=== PATIENT | female | born 2000 | race Caucasian/White ===

== ENCOUNTER 2025-06-17 05:52 | Inpatient (IN) | payer OTHER ==
[~2025-06-17] VITALS: Ht 152.4 cm; Wt 79.4 kg
[2025-06-17 05:04] VITALS: BP 114/87
[2025-06-17] MEDS ORDERED: PROMETHAZINE HCL 25 MG/ML AMPUL IV PRN (06:00)
[2025-06-17] MEDS ORDERED: RINGERS SOLUTION,LACTATED 1,000 ML IV SCH (06:00)
[2025-06-17] MEDS ORDERED: MORPHINE SULFATE 4 MG/ML CARTRIDGE IV PRN (06:00)
[2025-06-17] MEDS ORDERED: PRENATAL TABLE1 EAC1 (06:37)
[2025-06-17] MEDS ORDERED: SYNTHROID88 MCG PO (06:38)
[2025-06-17 07:08] LABS: BASO % 0.2 % (0.1-1.2); EOS # 0.19 (0.04-0.54); EOS % 0.9 % (0.7-7.0); LYMPH # 2.21 (1.18-3.74); LYMPH % 10.9 % (19.3-53.1); MEAN PLATELET VOLUME 13.00 fl (9.4-12.4); MONO # 1.36 (0.24-0.82); MONO % 6.7 % (4.7-12.5); NEUT # 16.40 (1.56-6.13); NEUT % 80.7 % (34.0-71.1); RED CELL DISTRIBUTION WIDTH 16.8 % (11.6-14.4)
[2025-06-17 07:10] VITALS: BP 125/71
[2025-06-17 07:11] LABS: URINE APPEARANCE Clear; URINE BILIRRUBIN Negative (NEGATIVE); URINE BLOOD Negative; URINE COLOR Yellow; URINE GLUCOSE Negative (NEGATIVE); URINE KETONE Trace (NEGATIVE); URINE LEUKOCYTE Trace; URINE NITRATE Negative; URINE PROTEIN 30 (NEGATIVE); URINE UROBILINOGEN 1.0 E.U./dl
[2025-06-17 07:16] LABS: URINE BACTERIA 911.9 uL (0.0-1933); URINE EPITHELIAL CELLS 32.7 uL (0.0-38.8); URINE RBC 3.6 uL (0.0-20.8); URINE WBC 19.5 uL (0.0-23.2)
[2025-06-17 07:16] LABS: INR < 0.93
[2025-06-17 07:34] LABS: URINE CAST 1.02 uL (0.0-1.40)
[2025-06-17 07:38] LABS: ALT/SGPT 12.0 U/L (12-78); AST/SGOT 14.0 U/L (15-37); BILIRUBIN TOTAL 0.44 mg/dL (0.3-1.2); BUN CREA RATIO 15.0 (7.0-25.0); CREATININE SERUM 0.68 mg/dL (0.55-1.02); GFR 105.42; GLOBULINA 4.2 G/DL (2.4-3.5); GLUCOSE FASTING 83.0 mg/dL (65-100); OSMOLALITY SERUM 279.0 MOSM/KG (275-295)
[2025-06-17] MEDS ORDERED: MISOPROSTOL 25 MCG/4 ML GEL.W.APPL VAG ONE ×3 (11:00→20:15)
[2025-06-17 11:26] VITALS: BP 121/75
[2025-06-17 15:15] VITALS: BP 112/59
[2025-06-17 19:25] VITALS: BP 122/66
[2025-06-17 23:07] VITALS: BP 134/84
[2025-06-18] MEDS ORDERED: MISOPROSTOL 25 MCG/4 ML GEL.W.APPL VAG ONE (00:15)
[2025-06-18 03:30] VITALS: BP 137/83
[2025-06-18 07:29] VITALS: BP 123/60
[2025-06-18 11:00] VITALS: BP 126/75
[2025-06-18] MEDS ORDERED: OXYTOCIN 500 ML IV SCH (12:15)
[2025-06-18 15:11] VITALS: BP 118/71
[2025-06-18] MEDS ORDERED: MORPHINE SULFATE 4 MG/ML VIAL IV PRN (15:15)
[2025-06-18] MEDS ORDERED: CEFAZOLIN SODIUM 1,000 MG VIAL IV ONE (17:15)
[2025-06-18] MEDS ORDERED: MORPHINE SULFATE 4 MG/ML CARTRIDGE IV PRN (19:00)
[2025-06-18] MEDS ORDERED: NALOXONE HCL 0.4 MG/ML AMPUL IV PRN (19:45)
[2025-06-18] MEDS ORDERED: OXYTOCIN 1,000 ML IV SCH (19:45)
[2025-06-18] MEDS ORDERED: MORPHINE SULFATE 4 MG/ML VIAL IV ONE (19:55)
[2025-06-18 21:34] VITALS: BP 130/73; O2SAT 99
[2025-06-19] VITALS: BP 145/84
[2025-06-19] MEDS ORDERED: LEVOTHYROXINE SODIUM 88 MCG TABLET PO SCH (06:00)
[2025-06-19 07:35] LABS: BASO % 0.2 % (0.1-1.2); EOS # 0.01 (0.04-0.54); EOS % 0.0 % (0.7-7.0); LYMPH # 1.77 (1.18-3.74); LYMPH % 7.8 % (19.3-53.1); MEAN PLATELET VOLUME 12.00 fl (9.4-12.4); MONO # 1.52 (0.24-0.82); MONO % 6.7 % (4.7-12.5); NEUT # 19.30 (1.56-6.13); NEUT % 84.7 % (34.0-71.1); RED CELL DISTRIBUTION WIDTH 16.7 % (11.6-14.4)
[2025-06-19 08:17] VITALS: BP 123/82
[2025-06-19] MEDS ORDERED: SIMETHICONE 125 MG CAPSULE PO SCH (09:00)
[2025-06-19] MEDS ORDERED: DOCUSATE SODIUM 100MG CAP PO SCH (09:00)
[2025-06-19] MEDS ORDERED: PNV,CALCIUM 72/IRON/FOLIC ACID 1 TAB TABLET PO SCH (09:00)
[2025-06-19] MEDS ORDERED: OxyCODONE HCL 5 MG TABLET (ROXICODONE) PO PRN (12:00)
[2025-06-19] MEDS ORDERED: ACETAMINOPHEN 325 MG TABLET PO PRN (12:00)
[2025-06-19] MEDS ORDERED: MEASLES,MUMPS,RUBELLA VACC/PF 1 VIAL VIAL SUBCUTANEO ONE (12:00)
[2025-06-19 13:34] VITALS: BP 94/59
[2025-06-19 18:09] VITALS: BP 99/62
[2025-06-20] VITALS: BP 92/60
[2025-06-20 08:00] VITALS: BP 106/69
== END 2025-06-20 17:09 | disposition home or self-care (01) | DRG 788 ==
LOC: LDR 05:52 → ICU-2 06-18 12:46 → LDR 06-18 12:57 → OB/GYN 06-18 19:16
PROVIDERS: ADMIT Obstetrics & Gynecology; ATTEND Obstetrics & Gynecology
PROC: 3E0P7VZ Introduction of Hormone into Female Reproductive, Via Natural or Artificial Opening (ICD-10-PCS; 2025-06-17)
PROC: 4A1HXCZ Monitoring of Products of Conception, Cardiac Rate, External Approach (ICD-10-PCS; 2025-06-17)
PROC: 3E033VJ Introduction of Other Hormone into Peripheral Vein, Percutaneous Approach (ICD-10-PCS; 2025-06-18)
PROC: 10D00Z1 Extraction of Products of Conception, Low, Open Approach (ICD-10-PCS; principal; 2025-06-18 17:15)
DX: O61.0 Failed medical induction of labor (principal); O62.1 Secondary uterine inertia; Z3A.39 39 weeks gestation of pregnancy; Z37.0 Single live birth